=== PATIENT | male | born 1980 | race Caucasian/White ===

== ENCOUNTER 2020-02-05 00:04 | Emergency (ER) | payer OTHER ==
[2020-02-05] MEDS ORDERED: TETRACAINE HCL 0.5% OPH SOLN 4 ML OD ONE (00:38)
--- NOTE | 2020-02-05 00:40 | ER Document Report ---
ED Medical Screen (RME) - General Stated Complaint: SPLINTER IN EYE OR CUT Time Seen by Provider: 02/05/20 00:31 Notes: Patient is a 39-year-old male who presents emergency department with a chief complaint of left eye redness and pain. 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 Exam: Erythema noted to the left eye. I have greeted and performed a rapid initial assessment of this patient. A comprehensive ED assessment and evaluation of the patient, analysis of test results and completion of medical decision making process will be conducted by an additional ED providers. TRAVEL OUTSIDE OF THE [place] IN LAST 30 DAYS: No - Related Data Allergies/Adverse Reactions: No Known Allergies Allergy (Verified 01/19/12 18:08) Past Medical History GI Medical History: Reports: Hx Gastroesophageal Reflux Disease Past Surgical History: Reports: Hx Abdominal Surgery - hernia repair - Immunizations Immunizations up to date: Yes Hx Diphtheria, Pertussis, Tetanus Vaccination: Yes - 06/08/12 Physical Exam - Vital signs Vitals: Pulse BP Pulse Ox 94 137/95 H 98 02/05/20 00:10 02/05/20 00:10 02/05/20 00:10 Course - Vital Signs Vital signs: Temp Pulse Resp BP Pulse Ox 94 137/95 H 98 02/05/20 00:10 02/05/20 00:10 02/05/20 00:10
[2020-02-05] MEDS ORDERED: TETRACAINE HCL 0.5% OPH SOLN 4 ML ONE (03:40)
--- NOTE | 2020-02-05 04:16 | ER Document Report ---
ED Eye Complaint - General Chief Complaint: Eye Problem Stated Complaint: SPLINTER IN EYE OR CUT Time Seen by Provider: 02/05/20 00:31 Primary Care Provider: LIYA REED MD [ACTIVE STAFF] - Follow up as needed [facility] [Primary Care Provider] - Follow up as needed TRAVEL OUTSIDE OF THE [place] IN LAST 30 DAYS: No - HPI Notes: Patient is a 39 y/o male with no medical history who presents with left eye pain. 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 He denies seeing or feeling a foreign body fly into his eye but reports eye pain, redness, tearing and foreign body sensation. He tried to rinse his eye with water which provided no relief. He endorses photophobia and blurred vision out of that eye but denies headache. Patient does not wear corrective lenses or contacts. Last tetanus was about two years ago. Patient drinks socially but denies tobacco and recreational drug use. - Related Data Allergies/Adverse Reactions: No Known Allergies Allergy (Verified 01/19/12 18:08) Past Medical History - General Information source: Patient - Social History Smoking Status: Never Smoker Frequency of alcohol use: Social Drug Abuse: None Family History: Reviewed & Not Pertinent GI Medical History: Reports: Hx Gastroesophageal Reflux Disease Past Surgical History: Reports: Hx Abdominal Surgery - hernia repair - Immunizations Immunizations up to date: Yes Hx Diphtheria, Pertussis, Tetanus Vaccination: Yes - 06/08/12 Review of Systems - Review of Systems Constitutional: No symptoms reported EENT: See HPI Cardiovascular: No symptoms reported Respiratory: No symptoms reported Gastrointestinal: No symptoms reported Genitourinary: No symptoms reported Male Genitourinary: No symptoms reported Musculoskeletal: No symptoms reported Skin: No symptoms reported Hematologic/Lymphatic: No symptoms reported Neurological/Psychological: No symptoms reported Physical Exam - Vital signs Vitals: Pulse BP Pulse Ox 94 137/95 H 98 02/05/20 00:10 02/05/20 00:10 02/05/20 00:10 - Notes Notes: PHYSICAL EXAMINATION: GENERAL: Well-appearing, well-nourished and in no acute distress. HEAD: Atraumatic, normocephalic. EYES: Left eye red with small circular area noted to the medial iris that can be seen with the naked eye. Sclera anicteric, conjunctiva are normal to the right eye. No eyelid edema bilaterally. PERRLA and EOMI. No pain with extraocular movements. SLIT LAMP: Foreign body visualized in the medial portion of the iris at the 8 o'clock position. It does not appear to be metal. No other foreign bodies or corneal abrasions visualized. No hyphema. Negative Dennis's sign. No cells or flare seen. No dendritic uptake visualized. ENT: Moist mucous membranes. NECK: Normal range of motion LUNGS: Normal work of breathing HEART: 2+ radial pulses bilaterally EXTREMITIES: no pitting or edema. No cyanosis. NEUROLOGICAL: No focal neurological deficits. Moves all extremities spontaneously and on command. PSYCH: Normal mood, normal affect. SKIN: Warm, Dry, normal turgor, no rashes or lesions noted. - HEENT Visual acuity- Right eye: 20/20 Visual acuity- Left eye: 20/20 Visual acuity- Both eyes: 20/20 Corrective lenses worn: No Course - Re-evaluation Re-evalutation: Patient is a 39 y/o male who presents with left eye pain and foreign body sensation for one day. Vital signs are within normal limits. On slit lamp exam, foreign body visualized in the medial portion of the iris at the 8 o'clock position. It does not appear to be metal. 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 Erythromycin ointment tube given and patient instructed to use 3-5 times a day. Return precautions and follow up instructions given. Patient understands and is in agreement with plan. - Vital Signs Vital signs: Temp Pulse Resp BP Pulse Ox 94 137/95 H 98 02/05/20 00:10 02/05/20 00:10 02/05/20 00:10 Discharge - Discharge Clinical Impression: Eye foreign body Qualifiers: Encounter type: initial encounter Laterality: left Qualified Code(s): T15.92XA - Foreign body on external eye, part unspecified, left eye, initial encounter Corneal abrasion Qualifiers: Encounter type: initial encounter Laterality: left Qualified Code(s): S05.02XA - Injury of conjunctiva and corneal abrasion without foreign body, left eye, initial encounter Condition: Stable Disposition: HOME, SELF-CARE Instructions: Corneal Abrasion ([facility]) Additional Instructions: Follow up with ophthalmology today for further evaluation of your eye foreign body. Use antibiotic ointment in your left eye three times a day. Referrals: [facility] [Primary Care Provider] - Follow up as needed LIYA REED MD [ACTIVE STAFF] - Follow up as needed
[2020-02-05] MEDS ORDERED: ERYTHROMYCIN 0.5% OPH OINTMENT 3.5 GM (ER DISP) OS PRN (05:08)
[2020-02-05 05:39] VITALS: BP 122/77
== END 2020-02-05 05:40 | disposition home or self-care (01) ==
LOC: ER 00:04
DX: T15.82XA Foreign body in other and multiple parts of external eye, left eye, initial encounter (principal); X58.XXXA Exposure to other specified factors, initial encounter
CPT/HCPCS: 99283; J3490